=== PATIENT | female | born 1955 | race Caucasian/White ===

== ENCOUNTER 2017-11-30 14:08 | Emergency (ER) | payer MEDICARE, OTHER ==
[~2017-11-30] VITALS: Ht 165.1 cm; Wt 90.7 kg
[~2017-11-30 14:08] MED LIST: ALBU90OI6 INH; ALPR1 PO; ATOR20 PO; BENZ100A PO; BREO ELLIPTA 11 EACH IH; BUPR150ER PO; CLOP75 PO; Calcium Magnes1 EAC1 PO; DESO.05TCA TOP; Duoneb 2.5-0.5 M3 ML INH; ESCI10 PO; ESOM20; ESTMEDA PO; Ester-C 500 MG1 EACH PO; FEXPSEER PO; FURO20 PO; HYDHCL25 PO; IPRAOI INH; LAMO100 PO; MUPI2TC TOP; NYST100SU SS; NYSTRI30T TOP; OXYB5 PO; PANT20 PO; POTA8 PO; PRIM50 PO; PROM25 PO; Percocet 5-3251 EACH PO; Prednisone20 MG PO; Prempro 0.625-1 EACH PO; TIZANIDINE HCL4 MG PO; TRAZ100 PO; Zithromax250 MG PO
[2017-11-30] MEDS ORDERED: NYST237S MT (15:20)
== END 2017-11-30 15:28 | disposition home or self-care (01) ==
LOC: ER 14:08
DX: B37.0 Candidal stomatitis (principal); Z88.6 Allergy status to analgesic agent; Z88.1 Allergy status to other antibiotic agents; Z88.8 Allergy status to other drugs, medicaments and biological substances; Z79.899 Other long term (current) drug therapy; Z79.2 Long term (current) use of antibiotics; J44.9 Chronic obstructive pulmonary disease, unspecified; Z86.73 Personal history of transient ischemic attack (TIA), and cerebral infarction without residual deficits
CPT/HCPCS: 99282